=== PATIENT | male | born 1965 | race Caucasian/White ===

== ENCOUNTER 2017-12-10 21:15 | Emergency (ER) | payer OTHER ==
[~2017-12-10] VITALS: Ht 182.9 cm; Wt 104.3 kg
[~2017-12-10 21:15] MED LIST: AUGMENTIN 875875 MG PO; CEFTIN 250 MG250 MG PO; CIPRO500 M1 PO; CIPROFLOXACIN500 M3 PO; COUMADIN 2.5MG2.5 M1 PO; COUMADIN 5 MG TA5 M1 PO; DILAUDID 2 MG TA2 MG PO; ENOXAPARIN100 MG/11 SUBQ; ENOXAPARIN150 MG/11 SUBQ; FIBERCON625 M1 PO; FLOMAX0.4 MG PO; HYDROCODONE-AP1 EAC6 PO; NEURONTIN 400400 M1 PO; NEURONTIN600 MG PO; NORCO 5-325 TA1 EACH PO; PERCOCET 5-3251 EACH PO; PERCOCET 7.5-31 EACH PO; PERCOCET PO; SINGULAIR 10 MG10 M1 PO; TRAMADOL 50 MG50 MG; TRAMADOL 50 MG50 MG PO; XARELTO15 MG PO; ZOFRAN ODT4 MG SUBLING
[2017-12-10 21:52] LABS: ABSOLUTE EOSINOPHILS 0.3 thou/uL (0.0-0.7); ABSOLUTE LYMPHOCYTES 1.9 thou/uL (0.8-5.3); ABSOLUTE MONOCYTES 0.7 thou/uL (0.0-1.2); ABSOLUTE NEUTROPHILS 4.9 thou/uL (1.6-8.1); BASOPHILS 0.4 %; EOSINOPHILS 3.6 %; HEMATOCRIT 41.7 % (42.0-52.0); HEMOGLOBIN 14.1 gm/dL (14.0-18.0); LYMPHOCYTES 23.9 %; MCH 30.1 pg (26.0-34.0); MCHC 33.8 g/dL (28.0-37.0); MONOCYTES 9.4 %; MPV 6.6 fl. (7.2-11.1); NUCLEATED RBCS 0 /100WBC; PLATELET COUNT* 233 thou/uL (150-400); POLYS 62.7 %; RBC 4.69 mil/uL (4.50-6.00); RDW-CV 14.1 % (10.5-14.5); WBC 7.9 thou/uL (4.0-11.0)
[2017-12-10 22:05] LABS: APTT 45.7 Seconds (25.0-31.3); INR 2.5
[2017-12-10] MEDS ORDERED: KEFLEX500 M1 PO (22:14)
[2017-12-10] MEDS ORDERED: BACTRIM DS TAB1 EACH PO (22:14)
[2017-12-10 22:17] LABS: ALBUMIN 3.4 g/dL (3.4-5.0); CALCIUM 8.7 mg/dL (8.5-10.1); CREATININE 1.2 mg/dL (0.6-1.3); POTASSIUM 3.7 mmol/L (3.5-5.1); TOTAL BILIRUBIN 0.4 mg/dL (<0.1-1.0); TOTAL PROTEIN 7.7 g/dL (6.4-8.2)
[2017-12-10 22:32] VITALS: BP 141/77
== END 2017-12-10 23:05 | disposition home or self-care (01) ==
LOC: M.ERS 21:15
PROVIDERS: Family Medicine
DX: L03.115 Cellulitis of right lower limb (principal); Z87.442 Personal history of urinary calculi; Z86.718 Personal history of other venous thrombosis and embolism; Z86.711 Personal history of pulmonary embolism

== ENCOUNTER 2018-06-11 04:32 | Emergency (ER) | payer OTHER ==
[~2018-06-11] VITALS: Ht 182.9 cm; Wt 102.7 kg
[~2018-06-11 04:32] MED LIST changes: +BACTRIM DS TAB1 EACH PO; +KEFLEX500 M1 PO
[2018-06-11 04:57] LABS: ABSOLUTE EOSINOPHILS 0.3 thou/uL (0.0-0.7); ABSOLUTE LYMPHOCYTES 1.8 thou/uL (0.8-5.3); ABSOLUTE MONOCYTES 0.5 thou/uL (0.0-1.2); ABSOLUTE NEUTROPHILS 4.9 thou/uL (1.6-8.1); BASOPHILS 0.5 %; HEMATOCRIT 46.2 % (42.0-52.0); HEMOGLOBIN 15.3 gm/dL (14.0-18.0); LYMPHOCYTES 24.3 %; MCH 30.4 pg (26.0-34.0); MCHC 33.2 g/dL (28.0-37.0); MCV 91.6 fL (80.0-100.0); MONOCYTES 6.3 %; NUCLEATED RBCS 0 /100WBC; PLATELET COUNT* 247 thou/uL (150-400); POLYS 64.9 %; RBC 5.05 mil/uL (4.50-6.00); RDW-CV 13.9 % (10.5-14.5); WBC 7.6 thou/uL (4.0-11.0)
[2018-06-11 05:01] LABS: URINE BLOOD 3+ (Negative); URINE CLARITY CLOUDY; URINE COLOR BROWN; URINE GLUCOSE-RANDOM NEGATIVE (Negative); URINE KETONES NEGATIVE (Negative); URINE LEUKOCYTES-REFLEX NEGATIVE (Negative); URINE NITRITE-REFLEX NEGATIVE (Negative); URINE PROTEIN 2+ (Negative); URINE SPECIFIC GRAVITY >= 1.030 (1.005-1.030); URINE UROBILINOGEN 0.2 E.U./dl (0.2-1.0)
[2018-06-11 05:04] LABS: ICTOTEST (BILI CONFIRMATORY) Negative (Negative); URINE BILIRUBIN 1+ (Negative)
[2018-06-11 05:18] LABS: INR 2.4; PROTIME 22.7 Seconds (9.20-11.50)
[2018-06-11 05:22] LABS: CALCIUM 8.6 mg/dL (8.5-10.1); CREATININE 1.3 mg/dL (0.6-1.3); POTASSIUM 3.6 mmol/L (3.5-5.1)
[2018-06-11 05:25] LABS: TOTAL BILIRUBIN 0.7 mg/dL (<0.1-1.0); TOTAL PROTEIN 8.1 g/dL (6.4-8.2)
[2018-06-11 05:39] LABS: CASTS None Seen /LPF (None Seen); SQUAMOUS NONE SEEN /LPF (0-3); URINE WBC-REFLEX 0-5 Rare /HPF (0-5)
[2018-06-11 05:40] LABS: BACTERIA-REFLEX 1-9 Few /HPF (None Seen); CRYSTALS None Seen /LPF (None Seen); URINE RBC >20 Many /HPF (0-2)
[2018-06-11] MEDS ORDERED: FLOMAX0.4 MG PO (06:22)
[2018-06-11] MEDS ORDERED: HYDROCODONE-AP1 EAC6 PO (06:22)
[2018-06-11] MEDS ORDERED: ZOFRAN ODT4 MG PO (06:22)
[2018-06-11 06:43] VITALS: BP 118/78
== END 2018-06-11 06:43 | disposition home or self-care (01) ==
LOC: M.ERS 04:32
PROVIDERS: Emergency Medicine Emergency Medical Services
DX: N20.0 Calculus of kidney (principal)

== ENCOUNTER 2019-06-11 12:22 | Inpatient (IN) | payer OTHER | END 2019-06-14 12:45 | disposition home or self-care (01) | DRG 603 | LOC: M.ERS 12:22 → M.TBA-ER 13:18 → M.ORTHSURG 14:20 | PROVIDERS: ADMIT Internal Medicine | DX: L03.115 Cellulitis of right lower limb (principal); L02.611 Cutaneous abscess of right foot; I87.2 Venous insufficiency (chronic) (peripheral); J40 Bronchitis, not specified as acute or chronic; Z79.899 Other long term (current) drug therapy; Z86.718 Personal history of other venous thrombosis and embolism; Z86.711 Personal history of pulmonary embolism; Z89.431 Acquired absence of right foot; Z87.442 Personal history of urinary calculi ==

== ENCOUNTER 2020-04-24 22:35 | Emergency (ER) | payer OTHER ==
[~2020-04-24] VITALS: Ht 182.9 cm; Wt 103.0 kg
[~2020-04-24 22:35] MED LIST changes: +DYNACIN100 MG PO; +VENTOLIN HFA 1818 GM INH; +ZOFRAN ODT4 MG PO
[2020-04-24] MEDS ORDERED: NEURONTIN 400M400 M2 PO (22:49)
[2020-04-24] MEDS ORDERED: CLEOCIN HCL300 MG PO (22:50)
[2020-04-24] MEDS ORDERED: METAXALL800 MG PO (22:50)
[2020-04-24] MEDS ORDERED: COUMADIN 5 MG TA5 M1 PO (22:51)
[2020-04-24] MEDS ORDERED: MEDROL4 M1 PO (22:52)
[2020-04-24 23:14] LABS: ABSOLUTE BASOPHILS 0.1 thou/uL (0.0-0.2); ABSOLUTE LYMPHOCYTES 1.5 thou/uL (0.8-5.3); ABSOLUTE MONOCYTES 0.5 thou/uL (0.0-1.2); ABSOLUTE NEUTROPHILS 5.9 thou/uL (1.6-8.1); BASOPHILS 0.7 %; EOSINOPHILS 0.5 %; HEMATOCRIT 43.5 % (42.0-52.0); LYMPHOCYTES 18.3 %; MCH 30.7 pg (26.0-34.0); MCHC 34.5 g/dL (28.0-37.0); MCV 89.1 fL (80.0-100.0); MONOCYTES 5.9 %; MPV 6.9 fl. (7.2-11.1); NUCLEATED RBCS 0 /100WBC; PLATELET COUNT* 247 thou/uL (150-400); POLYS 74.6 %; RBC 4.88 mil/uL (4.50-6.00); RDW-CV 14.2 % (10.5-14.5)
[2020-04-24 23:21] LABS: CALCIUM 8.4 mg/dL (8.5-10.1); CREATININE 1.3 mg/dL (0.6-1.3)
[2020-04-24 23:22] LABS: INR 4.3; PROTIME 41.9 Seconds (9.20-11.50)
[2020-04-24 23:26] LABS: ALBUMIN 3.9 g/dL (3.4-5.0); TOTAL BILIRUBIN 0.5 mg/dL (<0.1-1.0); TOTAL PROTEIN 8.1 g/dL (6.4-8.2)
[2020-04-24 23:52] LABS: URINE BILIRUBIN NEGATIVE (Negative); URINE BLOOD 3+ (Negative); URINE CLARITY CLOUDY; URINE COLOR RED; URINE GLUCOSE-RANDOM NEGATIVE (Negative); URINE KETONES NEGATIVE (Negative); URINE LEUKOCYTES-REFLEX NEGATIVE (Negative); URINE NITRITE-REFLEX NEGATIVE (Negative); URINE PROTEIN 1+ (Negative); URINE SPECIFIC GRAVITY 1.025 (1.005-1.030); URINE UROBILINOGEN 0.2 E.U./dl (0.2-1.0)
[2020-04-25] MEDS ORDERED: ZOFRAN ODT4 MG DISSOLVE (00:10)
[2020-04-25] MEDS ORDERED: NORCO 5-325 TA1 EAC1 PO (00:10)
[2020-04-25] MEDS ORDERED: FLOMAX0.4 MG PO (00:10)
[2020-04-25 00:20] VITALS: BP 144/93
[2020-04-25 00:40] LABS: BACTERIA-REFLEX None Seen /HPF (None Seen); CASTS None Seen /LPF (None Seen); CRYSTALS None Seen /LPF (None Seen); SQUAMOUS NONE SEEN /LPF (0-3); URINE RBC >20 Many /HPF (0-2); URINE WBC-REFLEX 0-5 Rare /HPF (0-5)
== END 2020-04-25 00:21 | disposition home or self-care (01) ==
LOC: M.ERS 22:35
PROVIDERS: Emergency Medicine Emergency Medical Services
DX: N20.0 Calculus of kidney (principal); R31.9 Hematuria, unspecified; Z87.442 Personal history of urinary calculi; Z86.711 Personal history of pulmonary embolism; Z86.718 Personal history of other venous thrombosis and embolism

== ENCOUNTER 2020-04-26 13:02 | Emergency (ER) | payer OTHER ==
[~2020-04-26] VITALS: Ht 182.9 cm; Wt 103.0 kg
[~2020-04-26 13:02] MED LIST changes: +CLEOCIN HCL300 MG PO; +MEDROL4 M1 PO; +METAXALL800 MG PO; +NEURONTIN 400M400 M2 PO; +NORCO 5-325 TA1 EAC1 PO; +ZOFRAN ODT4 MG DISSOLVE
[2020-04-26 14:04] LABS: HEMATOCRIT 47.4 % (42.0-52.0); MCH 30.4 pg (26.0-34.0); MCHC 33.7 g/dL (28.0-37.0); MCV 90.1 fL (80.0-100.0); MPV 6.7 fl. (7.2-11.1); NUCLEATED RBCS 0 /100WBC; PLATELET COUNT* 248 thou/uL (150-400); RBC 5.27 mil/uL (4.50-6.00); WBC 11.7 thou/uL (4.0-11.0)
[2020-04-26 14:14] LABS: APTT 39.4 Seconds (25.0-31.3); CALCIUM 9.1 mg/dL (8.5-10.1); CREATININE 1.5 mg/dL (0.6-1.3); POTASSIUM 3.3 mmol/L (3.5-5.1); PROTIME 22.8 Seconds (9.20-11.50)
[2020-04-26 14:16] LABS: INR 2.3
[2020-04-26 14:19] LABS: ALBUMIN 4.4 g/dL (3.4-5.0); TOTAL PROTEIN 9.1 g/dL (6.4-8.2)
[2020-04-26 14:33] LABS: ABSOLUTE LYMPHOCYTES 1.1 thou/uL (0.8-5.3); ABSOLUTE MONOCYTES 0.8 thou/uL (0.0-1.2); ABSOLUTE NEUTROPHILS 9.8 thou/uL (1.6-8.1); PLATELET ESTIMATE ADEQUATE
[2020-04-26 16:16] LABS: URINE BILIRUBIN NEGATIVE (Negative); URINE BLOOD 3+ (Negative); URINE CLARITY CLOUDY; URINE COLOR BROWN; URINE GLUCOSE-RANDOM NEGATIVE (Negative); URINE KETONES NEGATIVE (Negative); URINE LEUKOCYTES-REFLEX NEGATIVE (Negative); URINE NITRITE-REFLEX NEGATIVE (Negative); URINE PROTEIN 1+ (Negative); URINE UROBILINOGEN 0.2 E.U./dl (0.2-1.0)
[2020-04-26 16:30] LABS: SQUAMOUS 0-3 Few /LPF (0-3)
[2020-04-26 16:35] LABS: URINE RBC >20 Many /HPF (0-2); URINE WBC-REFLEX 0-5 Rare /HPF (0-5)
[2020-04-26 16:36] LABS: BACTERIA-REFLEX 1-9 Few /HPF (None Seen); CASTS None Seen /LPF (None Seen); CRYSTALS None Seen /LPF (None Seen); MUCUS None Seen strn/LPF (None Seen)
[2020-04-26 18:50] VITALS: BP 135/70
== END 2020-04-26 18:50 | disposition short-term general hospital (02) ==
LOC: M.ERS 13:02
PROVIDERS: Nurse Practitioner Family
DX: N20.1 Calculus of ureter (principal); N17.9 Acute kidney failure, unspecified; R11.2 Nausea with vomiting, unspecified; Z87.442 Personal history of urinary calculi; Z86.718 Personal history of other venous thrombosis and embolism; Z86.711 Personal history of pulmonary embolism; Z89.431 Acquired absence of right foot

== ENCOUNTER 2021-07-26 15:02 | Inpatient (IN) | payer OTHER ==
[~2021-07-26] VITALS: Ht 182.9 cm; Wt 101.2 kg
[~2021-07-26 15:02] MED LIST changes: +JANTOVEN2.5 MG PO
[2021-07-26 15:10] VITALS: BP 146/89
[2021-07-26 16:13] LABS: ABSOLUTE EOSINOPHILS 0.3 thou/uL (0.0-0.7); ABSOLUTE LYMPHOCYTES 1.2 thou/uL (0.8-5.3); ABSOLUTE MONOCYTES 0.8 thou/uL (0.0-1.2); ABSOLUTE NEUTROPHILS 3.5 thou/uL (1.6-8.1); BASOPHILS 0.6 %; EOSINOPHILS 5.7 %; MCH 29.5 pg (26.0-34.0); MCHC 32.6 g/dL (28.0-37.0); MCV 90.5 fL (80.0-100.0); MONOCYTES 13.7 %; MPV 6.2 fl. (7.2-11.1); NUCLEATED RBCS 0 /100WBC; PLATELET COUNT* 213 thou/uL (150-400); RBC 4.74 mil/uL (4.50-6.00); RDW-CV 14.5 % (10.5-14.5); WBC 5.9 thou/uL (4.0-11.0)
[2021-07-26 16:22] LABS: CREATININE 1.5 mg/dL (0.6-1.3); POTASSIUM 4.3 mmol/L (3.5-5.1)
[2021-07-26 16:26] LABS: ALBUMIN 3.6 g/dL (3.4-5.0); TOTAL BILIRUBIN 0.6 mg/dL (<0.1-1.0)
[2021-07-26 19:58] LABS: PROTIME 48.6 Seconds (9.20-11.50)
[2021-07-26 20:09] LABS: INR 5.1
[2021-07-26 22:30] VITALS: BP 145/65
[2021-07-26 22:49] VITALS: BP 146/89
[2021-07-27 05:28] LABS: HEMATOCRIT 40.4 % (42.0-52.0); HEMOGLOBIN 13.6 gm/dL (14.0-18.0); MCH 30.4 pg (26.0-34.0); MCHC 33.5 g/dL (28.0-37.0); MCV 90.6 fL (80.0-100.0); MPV 6.8 fl. (7.2-11.1); RBC 4.46 mil/uL (4.50-6.00); RDW-CV 14.4 % (10.5-14.5); WBC 4.9 thou/uL (4.0-11.0)
[2021-07-27 05:31] LABS: PROTIME 51.9 Seconds (9.20-11.50)
[2021-07-27 05:36] LABS: ALBUMIN 3.1 g/dL (3.4-5.0); CALCIUM 7.6 mg/dL (8.5-10.1); CREATININE 1.4 mg/dL (0.6-1.3); MAGNESIUM 1.9 mg/dL (1.8-2.4); POTASSIUM 4.2 mmol/L (3.5-5.1); TOTAL BILIRUBIN 0.6 mg/dL (<0.1-1.0); TOTAL PROTEIN 6.5 g/dL (6.4-8.2)
[2021-07-27 06:00] LABS: INR 5.4
--- NOTE | 2021-07-27 06:30 | NUR ---
ADMIT NOTE:RECIEVED PT VIA BED FROM ED, PT RESTING IN BED REQUESTING TO WALK TO BATHROOM, GAIT STEADY, C/O PAIN AT BILATERAL LOWER WOUNDS SITES,IV FLUIDS STARTED, DISCUSSED PLAN OF CARE, OBTAINED PICTURES OF LOWER BILATERAL WOUNDS, AND CALLED ADN RECIEVED PAIN MEDICATIONS ORDERS. WILL CONITNUE WITH CURRENT PLAN OF CARE AND WILL REPORT CHANGES.
[2021-07-27 07:40] VITALS: BP 116/79
--- NOTE | 2021-07-27 10:00 | NUR ---
WOUND NURSE: PATIENT SEEN TO ADDRESS VLU'S PRESENT ON BLE AND WITH CELLULITIS. WOUND MEASUREMENTS FOLLOWS: RLE: LATERAL: 3.0 X 2.9 X 0.1 CM; MEDIAL 2.4 X 1.5 X 0.1 CM; POSTERIOR: 1.5 X 1.5 X 0.1 CM INTACT SEROUS FILLED BULLA. LLE: POSTERIOR 2.5 X 2.0 X 0.1 CM, INTACT SEROUS FILLED BULLA; MEDIAL: 0.2 X 0.7 X 0.1 CM. ALL LESIONS SHALLOW AND CONTAIN THIN DRY RED SCABS, NO ACTIVE DRAINAGE. RLE IS REDDENED AND WARM TO TOUCH. CAPILLARY REFILL IN BLE 3 TO 4 SECONDS. PALPABLE DP PULSES BILATERALLY. NONPALP PT'S. PATIENT WITH RLE RASH PRESENTING WITH SILVERY PLAQUES AND PATIENT STATES HE HAS HAD THIS PROBLEM FOR MORE THAN A YEAR. PATIENT STATES HE ORIGINALLY SAW DR. VALDEZ YEARS AGO, BUT WANTS TO SEE PHYSICIAN FROM [facility] SO HE CAN BE FOLLOWED THERE IN THE FUTURE. PATIENT SCHEDULED TO SEE DR. ROOT LATER TODAY, THEN SCHEDULED TO SEE DR. ARBOLEDA IN THE CLINIC ONCE DISCHARGED FROM ACUTE CARE. PATIENT ALSO REPORTS HE SAW [facility] AND THEY WANT TO TREAT VENOUS INSUFFICIENCY LATER IN THE [place] AND WEAR COMPRESSION IN THE MEAN TIME. PT STATES THEY ALSO ADDRESSED ARTERIES AND HE DOESN'T THINK THERE WAS A PROBLEM WITH THEM. PT DOES NOT HAVE A SMOKING HISTORY. PATIENT INSTRUCTED ON MEASURES TO PROMOTE HEALING AND PREVENT COMPLICAIONS. STATES HE UNDERSTANDS. PATIENT WRAPPED WITH DSD USING KERLEX ROLL GAUZE UNTIL HE'S SEEN BY DR ROOT LATER TODAY.
--- NOTE | 2021-07-27 14:43 | NUR ---
Pt is A&O. Resides at home alone, in October 2020, dtr supportive and involved in POC. Pt is independent. No DME. No hx of HH or SNF. Wound nurse and podiatry consulted. Goal is home at dc. Following for dc needs.
[2021-07-27 16:00] VITALS: BP 121/82
--- NOTE | 2021-07-27 16:02 | NUR ---
PT REMAINED ALERT AND ORIENTED. PT RESTING IN BED, PAIN MEDS GIVEN ORDERED. PODIATRY DEBRIDED RT FOOT. FALL RISK PRECAUTIONS IN PLACE, HOURLY ROUNDING COMPLETED. CALL LIGHT WITHIN REACH.
--- NOTE | 2021-07-27 16:28 | NUR ---
WOUND NURSE: WOUND DEBRIDEMENT PERFORMED BY DR. DK DPM. POST DEBRIDEMENT PHOTO OBTAINED. CONSENT FORM COMPLETED AND DEBRIDEMENT FORM ALSO COMPLETED. ORDERS OBRAINED FOR WOUND CARE AND INITIATED. PATIENT BEING TREATED FOR FUNGAL RASH ON RIGHT CALF ALSO. POST DEBRIDEMENT MEASUREMENTS WERE 3.0 X 2.5 X 0.1 CM. RED NONGRANULATING TISSUE PRESENT UNDERNEATH EXUDATE THAT WAS REMOVED.
[2021-07-27 19:32] VITALS: BP 121/73; BP 121/733
[2021-07-28] VITALS: BP 126/86
[2021-07-28 04:00] VITALS: BP 130/81
--- NOTE | 2021-07-28 04:42 | NUR ---
PATIENT HAS REMAINED ALERT AND ORIENTED X 4 THROUGHOUT THE SHIFT AND RESTING QUIETLY ON HOURLY ROUNDS BUT STATES DOES NOT SLEEP MUCH. SNACK IN THE MIDDLE OF THE NIGHT AT REQUEST. DRESSING RLE CLEAN AND DRY. ANTIBIOTICS PER ORDER. VITAL SIGNS STABLE. CONTINUE TO MONITOR.
[2021-07-28 05:22] LABS: HEMATOCRIT 45.2 % (42.0-52.0); HEMOGLOBIN 15.3 gm/dL (14.0-18.0); MCH 30.6 pg (26.0-34.0); MCHC 33.9 g/dL (28.0-37.0); MCV 90.2 fL (80.0-100.0); MPV 6.2 fl. (7.2-11.1); RBC 5.01 mil/uL (4.50-6.00); RDW-CV 14.1 % (10.5-14.5); WBC 5.5 thou/uL (4.0-11.0)
[2021-07-28 05:34] LABS: INR 2.8
[2021-07-28 05:37] LABS: ALBUMIN 3.6 g/dL (3.4-5.0); CALCIUM 8.6 mg/dL (8.5-10.1); CREATININE 1.3 mg/dL (0.6-1.3); MAGNESIUM 2.1 mg/dL (1.8-2.4)
[2021-07-28 05:57] LABS: TOTAL BILIRUBIN 0.7 mg/dL (<0.1-1.0); TOTAL PROTEIN 7.5 g/dL (6.4-8.2)
[2021-07-28 07:35] VITALS: BP 136/94
[2021-07-28 11:25] VITALS: BP 116/80
--- NOTE | 2021-07-28 11:53 | NUR ---
Anticipate dc in tomorrow. Pt had debridement at bedside yesterday, will f/u with wound care center post dc. No plan for ivabx.
[2021-07-28 16:00] VITALS: BP 127/82
--- NOTE | 2021-07-28 16:32 | NUR ---
PT REMAINED ALERT AND ORIENTED. FALL RISK PRECAUTIONS IN PLACE. HOURLY ROUNDING COMPLETED. CALL LIGHT WITHIN REACH.
[2021-07-28 20:10] VITALS: BP 122/86
[2021-07-29 03:01] VITALS: BP 137/86
--- NOTE | 2021-07-29 06:28 | NUR ---
pt is stable, denies pain. continue iv abt. up to bathroom, remains free from injury.
[2021-07-29 07:12] LABS: INR 1.9; PROTIME 19.8 Seconds (9.20-11.50)
[2021-07-29] MEDS ORDERED: NYSTATIN15 G3 TOP (08:42)
[2021-07-29] MEDS ORDERED: BACTRIM DS TAB1 EAC1 PO (08:46)
[2021-07-29] MEDS ORDERED: AMOXIL 875 MG875 M2 PO (08:46)
[2021-07-29 12:38] VITALS: BP 130/79
[2021-07-29 13:45] VITALS: BP 130/79
[2021-07-29 13:47] VITALS: BP 130/79
[2021-07-29 13:57] VITALS: BP 130/79
--- NOTE | 2021-07-29 15:17 | NUR ---
Pt assisted to exit by hospital staff. States understanding of discharge instructions and plans to follow up with wound care and PCP. Ambulatory on discharge. Wound dressing changed and documented prior to departure.
[2021-07-30] MEDS ORDERED: PROMETHAZI6.25 MG/5 PO (16:53)
[2021-07-30] MEDS ORDERED: TESSALON PERLE100 MG PO (16:53)
== END 2021-07-29 15:20 | disposition home or self-care (01) | DRG 571 ==
LOC: M.ERS 15:02 → M.TBA-ER 16:42 → M.2W 16:42
PROVIDERS: Physician Assistant; ADMIT Internal Medicine; ATTEND Internal Medicine
PROC: 0JBN0ZZ Excision of Right Lower Leg Subcutaneous Tissue and Fascia, Open Approach (ICD-10-PCS; principal; 2021-07-27)
DX: L03.115 Cellulitis of right lower limb (principal); L97.819 Non-pressure chronic ulcer of other part of right lower leg with unspecified severity; Z60.2 Problems related to living alone; B35.3 Tinea pedis; N18.30 Chronic kidney disease, stage 3 unspecified; Z20.822 Contact with and (suspected) exposure to COVID-19; Z89.431 Acquired absence of right foot; Z87.442 Personal history of urinary calculi; Z86.718 Personal history of other venous thrombosis and embolism; Z86.711 Personal history of pulmonary embolism; Z79.899 Other long term (current) drug therapy

== ENCOUNTER 2021-07-30 16:19 | Emergency (ER) | payer OTHER ==
[~2021-07-30] VITALS: Ht 180.3 cm; Wt 104.3 kg
[~2021-07-30 16:19] MED LIST changes: +AMOXIL 875 MG875 M2 PO; +BACTRIM DS TAB1 EAC1 PO; +NYSTATIN15 G3 TOP
[2021-07-30] MEDS ORDERED: PROMETHAZI6.25 MG/5 PO (16:53)
[2021-07-30] MEDS ORDERED: TESSALON PERLE100 MG PO (16:53)
[2021-07-30 17:02] VITALS: BP 122/72
== END 2021-07-30 17:04 | disposition home or self-care (01) ==
LOC: M.ERS 16:19
DX: J06.9 Acute upper respiratory infection, unspecified (principal); Z20.822 Contact with and (suspected) exposure to COVID-19; S91.001A Unspecified open wound, right ankle, initial encounter; Z86.718 Personal history of other venous thrombosis and embolism; Z79.899 Other long term (current) drug therapy; X58.XXXA Exposure to other specified factors, initial encounter; Y93.89 Activity, other specified; Y92.89 Other specified places as the place of occurrence of the external cause; Y99.8 Other external cause status

== ENCOUNTER → 2021-08-05 | Outpatient (CLI) | payer OTHER ==
[~2021-08-05] MED LIST changes: +PROMETHAZI6.25 MG/5 PO; +TESSALON PERLE100 MG PO
== END ==
LOC: M.WC 08:00
PROVIDERS: ATTEND Family Medicine
DX: I87.331 Chronic venous hypertension (idiopathic) with ulcer and inflammation of right lower extremity (principal); L97.812 Non-pressure chronic ulcer of other part of right lower leg with fat layer exposed; G62.9 Polyneuropathy, unspecified; Z89.431 Acquired absence of right foot; Z86.718 Personal history of other venous thrombosis and embolism; Z79.01 Long term (current) use of anticoagulants

== ENCOUNTER → 2021-08-09 | Outpatient (CLI) | payer OTHER | LOC: M.WC 12:13 | PROVIDERS: ATTEND Podiatrist Foot & Ankle Surgery | DX: I83.013 Varicose veins of right lower extremity with ulcer of ankle (principal); L97.312 Non-pressure chronic ulcer of right ankle with fat layer exposed; L84 Corns and callosities; G62.9 Polyneuropathy, unspecified; Z89.431 Acquired absence of right foot; Z86.718 Personal history of other venous thrombosis and embolism; Z79.01 Long term (current) use of anticoagulants ==

== ENCOUNTER → 2021-08-16 | Outpatient (CLI) | payer OTHER | LOC: M.WC 12:29 | PROVIDERS: ATTEND Podiatrist Foot & Ankle Surgery | DX: I83.013 Varicose veins of right lower extremity with ulcer of ankle (principal); L97.312 Non-pressure chronic ulcer of right ankle with fat layer exposed; L84 Corns and callosities; G62.9 Polyneuropathy, unspecified; Z89.431 Acquired absence of right foot; Z86.718 Personal history of other venous thrombosis and embolism; Z79.01 Long term (current) use of anticoagulants ==

== ENCOUNTER → 2021-08-23 | Outpatient (CLI) | payer OTHER | LOC: M.WC 11:54 | PROVIDERS: ATTEND Podiatrist Foot & Ankle Surgery | DX: I83.013 Varicose veins of right lower extremity with ulcer of ankle (principal); L97.312 Non-pressure chronic ulcer of right ankle with fat layer exposed; L84 Corns and callosities; G62.9 Polyneuropathy, unspecified; Z89.431 Acquired absence of right foot; Z86.718 Personal history of other venous thrombosis and embolism; Z79.01 Long term (current) use of anticoagulants ==

== ENCOUNTER → 2021-08-30 | Outpatient (CLI) | payer OTHER | LOC: M.WC 12:22 | PROVIDERS: ATTEND Podiatrist Foot & Ankle Surgery | DX: I83.013 Varicose veins of right lower extremity with ulcer of ankle (principal); L97.312 Non-pressure chronic ulcer of right ankle with fat layer exposed; L84 Corns and callosities; L13.9 Bullous disorder, unspecified; G62.9 Polyneuropathy, unspecified; Z89.431 Acquired absence of right foot; Z86.718 Personal history of other venous thrombosis and embolism; Z79.01 Long term (current) use of anticoagulants ==

== ENCOUNTER → 2021-09-06 | Outpatient (CLI) | payer OTHER | LOC: M.WC 14:00 | PROVIDERS: ATTEND Podiatrist Foot & Ankle Surgery | DX: I83.013 Varicose veins of right lower extremity with ulcer of ankle (principal); L97.312 Non-pressure chronic ulcer of right ankle with fat layer exposed; L84 Corns and callosities; L13.9 Bullous disorder, unspecified; G62.9 Polyneuropathy, unspecified; Z89.431 Acquired absence of right foot; Z86.718 Personal history of other venous thrombosis and embolism; Z79.01 Long term (current) use of anticoagulants ==

== ENCOUNTER 2021-11-06 12:41 | Inpatient (IN) | payer OTHER ==
[~2021-11-06] VITALS: Ht 182.9 cm; Wt 102.5 kg
[2021-11-06 12:46] VITALS: BP 147/90
[2021-11-06 13:21] LABS: INFLUENZA A ANTIGEN Negative (Negative); INFLUENZA B ANTIGEN Negative (Negative)
[2021-11-06 15:47] LABS: ABSOLUTE LYMPHOCYTES 0.8 thou/uL (0.8-5.3); ABSOLUTE MONOCYTES 0.6 thou/uL (0.0-1.2); ABSOLUTE NEUTROPHILS 4.1 thou/uL (1.6-8.1); BASOPHILS 0.2 %; HEMATOCRIT 45.7 % (42.0-52.0); HEMOGLOBIN 15.6 gm/dL (14.0-18.0); LYMPHOCYTES 14.3 %; MCH 30.2 pg (26.0-34.0); MCHC 34.2 g/dL (28.0-37.0); MCV 88.5 fL (80.0-100.0); MPV 6.7 fl. (7.2-11.1); NUCLEATED RBCS 0 /100WBC; PLATELET COUNT* 148 thou/uL (150-400); POLYS 74.5 %; RBC 5.16 mil/uL (4.50-6.00); RDW-CV 14.3 % (10.5-14.5); WBC 5.6 thou/uL (4.0-11.0)
[2021-11-06 15:55] LABS: CALCIUM 8.1 mg/dL (8.5-10.1); CREATININE 1.8 mg/dL (0.6-1.3); POTASSIUM 3.9 mmol/L (3.5-5.1)
[2021-11-06 16:07] LABS: ALBUMIN 3.5 g/dL (3.4-5.0); TOTAL BILIRUBIN 0.7 mg/dL (<0.1-1.0)
[2021-11-06 20:30] VITALS: BP 110/80
[2021-11-07 00:30] VITALS: BP 115/78
[2021-11-07 04:30] VITALS: BP 116/77
[2021-11-07 08:33] VITALS: BP 133/86
[2021-11-07 11:07] LABS: ABSOLUTE LYMPHOCYTES 0.8 thou/uL (0.8-5.3); ABSOLUTE MONOCYTES 0.5 thou/uL (0.0-1.2); ABSOLUTE NEUTROPHILS 4.7 thou/uL (1.6-8.1); BASOPHILS 0.2 %; HEMATOCRIT 45.9 % (42.0-52.0); HEMOGLOBIN 15.6 gm/dL (14.0-18.0); LYMPHOCYTES 12.6 %; MCH 30.2 pg (26.0-34.0); MCHC 33.9 g/dL (28.0-37.0); MONOCYTES 8.4 %; MPV 6.8 fl. (7.2-11.1); NUCLEATED RBCS 0 /100WBC; PLATELET COUNT* 147 thou/uL (150-400); POLYS 78.8 %; RBC 5.16 mil/uL (4.50-6.00); RDW-CV 14.2 % (10.5-14.5)
[2021-11-07 11:19] LABS: APTT 37.2 Seconds (25.0-31.3); INR 1.4
[2021-11-07 11:20] LABS: ALBUMIN 3.2 g/dL (3.4-5.0); CALCIUM 8.4 mg/dL (8.5-10.1); CREATININE 1.5 mg/dL (0.6-1.3); MAGNESIUM 2.4 mg/dL (1.8-2.4); PHOSPHORUS* 3.2 mg/dL (2.5-4.9); POTASSIUM 4.1 mmol/L (3.5-5.1); TOTAL BILIRUBIN 0.7 mg/dL (<0.1-1.0); TOTAL PROTEIN 7.8 g/dL (6.4-8.2)
[2021-11-07 12:11] LABS: ESR (SEDRATE) 50 mm/hr (0-20)
[2021-11-07 12:24] VITALS: BP 122/70
[2021-11-07 17:14] VITALS: BP 152/80
[2021-11-07 22:44] VITALS: BP 129/89
[2021-11-08 01:00] VITALS: BP 127/77
[2021-11-08 04:00] VITALS: BP 125/84
[2021-11-08 08:51] LABS: HEMATOCRIT 43.7 % (42.0-52.0); HEMOGLOBIN 14.5 gm/dL (14.0-18.0); MCH 29.9 pg (26.0-34.0); MCHC 33.2 g/dL (28.0-37.0); MCV 90.2 fL (80.0-100.0); MPV 6.7 fl. (7.2-11.1); NUCLEATED RBCS 0 /100WBC; PLATELET COUNT* 164 thou/uL (150-400); RBC 4.84 mil/uL (4.50-6.00); RDW-CV 14.3 % (10.5-14.5); WBC 5.4 thou/uL (4.0-11.0)
[2021-11-08 08:55] LABS: CREATININE 1.5 mg/dL (0.6-1.3); POTASSIUM 4.2 mmol/L (3.5-5.1)
[2021-11-08 10:50] LABS: ABSOLUTE LYMPHOCYTES 0.3 thou/uL (0.8-5.3); ABSOLUTE MONOCYTES 0.3 thou/uL (0.0-1.2); ABSOLUTE NEUTROPHILS 4.8 thou/uL (1.6-8.1)
[2021-11-08 10:51] LABS: PLATELET ESTIMATE ADEQUATE
[2021-11-08 16:00] VITALS: BP 123/72
[2021-11-08 16:40] VITALS: BP 123/75
[2021-11-08 17:40] VITALS: BP 128/84; BP 138/62
[2021-11-08 20:00] VITALS: BP 127/80
[2021-11-09] VITALS: BP 122/71
[2021-11-09 04:00] VITALS: BP 155/86
[2021-11-09 04:23] LABS: HEMATOCRIT 43.7 % (42.0-52.0); HEMOGLOBIN 14.5 gm/dL (14.0-18.0); MCH 29.7 pg (26.0-34.0); MCHC 33.1 g/dL (28.0-37.0); MCV 89.6 fL (80.0-100.0); MPV 6.9 fl. (7.2-11.1); RBC 4.88 mil/uL (4.50-6.00); RDW-CV 14.6 % (10.5-14.5); WBC 11.2 thou/uL (4.0-11.0)
[2021-11-09 05:09] LABS: CALCIUM 8.4 mg/dL (8.5-10.1); CREATININE 1.3 mg/dL (0.6-1.3)
[2021-11-09 08:00] VITALS: BP 148/80
[2021-11-09 16:00] VITALS: BP 132/72
[2021-11-10 00:29] VITALS: BP 128/80
[2021-11-10 04:00] VITALS: BP 133/60
[2021-11-10 09:30] VITALS: BP 130/72
[2021-11-10 13:09] VITALS: BP 132/80
[2021-11-10 16:00] VITALS: BP 125/78
[2021-11-10 20:30] VITALS: BP 140/87
[2021-11-11] VITALS: BP 101/29
[2021-11-11 03:46] LABS: HEMATOCRIT 39.6 % (42.0-52.0); HEMOGLOBIN 13.3 gm/dL (14.0-18.0); MCH 29.9 pg (26.0-34.0); MCHC 33.6 g/dL (28.0-37.0); MCV 88.9 fL (80.0-100.0); MPV 6.6 fl. (7.2-11.1); RBC 4.45 mil/uL (4.50-6.00); RDW-CV 14.6 % (10.5-14.5); WBC 10.1 thou/uL (4.0-11.0)
[2021-11-11 04:00] VITALS: BP 133/86
[2021-11-11 04:09] LABS: CALCIUM 8.4 mg/dL (8.5-10.1); CREATININE 1.2 mg/dL (0.6-1.3)
[2021-11-11 09:15] VITALS: BP 150/88
[2021-11-11 10:01] LABS: BE -0.5 mmol/L (-2 to +3); pH 7.421 (7.340-7.450)
[2021-11-11 10:08] LABS: PO2 56.9 mmHg (75.0-100.0)
[2021-11-11 13:40] VITALS: BP 144/93
[2021-11-11 16:00] VITALS: BP 128/79
[2021-11-11 20:00] VITALS: BP 127/87
[2021-11-12 00:53] VITALS: BP 150/92
[2021-11-12 04:49] VITALS: BP 137/79
[2021-11-12 07:58] VITALS: BP 136/90
[2021-11-12 11:43] LABS: BE -1.4 mmol/L (-2 to +3); PCO2 36.2 mmHg (35.0-45.0); PO2 65.2 mmHg (75.0-100.0); pH 7.415 (7.340-7.450)
[2021-11-12 13:12] VITALS: BP 140/90
[2021-11-12 16:00] VITALS: BP 132/85
[2021-11-12 21:10] VITALS: BP 139/87
[2021-11-13] VITALS: BP 140/89
[2021-11-13 04:01] VITALS: BP 140/96
[2021-11-13 06:33] LABS: ABSOLUTE LYMPHOCYTES 0.5 thou/uL (0.8-5.3); ABSOLUTE MONOCYTES 0.5 thou/uL (0.0-1.2); ABSOLUTE NEUTROPHILS 8.7 thou/uL (1.6-8.1); BASOPHILS 0.2 %; HEMATOCRIT 40.5 % (42.0-52.0); HEMOGLOBIN 13.3 gm/dL (14.0-18.0); LYMPHOCYTES 4.8 %; MCH 29.6 pg (26.0-34.0); MCHC 32.9 g/dL (28.0-37.0); MCV 90.2 fL (80.0-100.0); MONOCYTES 5.1 %; MPV 6.7 fl. (7.2-11.1); NUCLEATED RBCS 0 /100WBC; PLATELET COUNT* 299 thou/uL (150-400); POLYS 89.9 %; RBC 4.49 mil/uL (4.50-6.00); RDW-CV 14.6 % (10.5-14.5); WBC 9.6 thou/uL (4.0-11.0)
[2021-11-13 06:43] LABS: PROTIME 68.1 Seconds (9.20-11.50)
[2021-11-13 06:45] LABS: INR 7.1
[2021-11-13 06:50] LABS: ALBUMIN 2.6 g/dL (3.4-5.0); CALCIUM 8.8 mg/dL (8.5-10.1); CREATININE 1.2 mg/dL (0.6-1.3); MAGNESIUM 2.4 mg/dL (1.8-2.4); POTASSIUM 4.4 mmol/L (3.5-5.1); TOTAL PROTEIN 6.9 g/dL (6.4-8.2)
[2021-11-13 08:00] VITALS: BP 136/87
[2021-11-13 12:00] VITALS: BP 144/85
[2021-11-13 12:30] VITALS: BP 128/83
[2021-11-13 20:00] VITALS: BP 143/81
[2021-11-14] VITALS (7 sets, daily range): BP systolic 122–142; BP diastolic 81–95
[2021-11-14 06:50] LABS: HEMOGLOBIN 13.7 gm/dL (14.0-18.0); MCH 29.5 pg (26.0-34.0); MCHC 33.4 g/dL (28.0-37.0); MCV 88.2 fL (80.0-100.0); MPV 7.1 fl. (7.2-11.1); RBC 4.66 mil/uL (4.50-6.00); RDW-CV 14.3 % (10.5-14.5); WBC 11.1 thou/uL (4.0-11.0)
[2021-11-14 07:03] LABS: CALCIUM 8.8 mg/dL (8.5-10.1); CREATININE 1.4 mg/dL (0.6-1.3); POTASSIUM 4.4 mmol/L (3.5-5.1)
[2021-11-14 15:02] LABS: PROTIME 39.1 Seconds (9.20-11.50)
[2021-11-15 02:00] LABS: HEMATOCRIT 43.1 % (42.0-52.0); HEMOGLOBIN 14.1 gm/dL (14.0-18.0); MCH 29.4 pg (26.0-34.0); MCHC 32.8 g/dL (28.0-37.0); MCV 89.9 fL (80.0-100.0); RBC 4.8 mil/uL (4.50-6.00); RDW-CV 14.4 % (10.5-14.5); WBC 11.4 thou/uL (4.0-11.0)
[2021-11-15 02:07] VITALS: BP 12/829
[2021-11-15 02:07] LABS: INR 4.1; PROTIME 39.8 Seconds (9.20-11.50)
[2021-11-15 02:10] LABS: ALBUMIN 2.9 g/dL (3.4-5.0); CALCIUM 8.7 mg/dL (8.5-10.1); CREATININE 1.4 mg/dL (0.6-1.3); MAGNESIUM 2.3 mg/dL (1.8-2.4); POTASSIUM 4.6 mmol/L (3.5-5.1); TOTAL BILIRUBIN 1.3 mg/dL (<0.1-1.0); TOTAL PROTEIN 7.1 g/dL (6.4-8.2)
[2021-11-15 06:17] VITALS: BP 140/90
[2021-11-15 08:00] VITALS: BP 123/82
[2021-11-15 12:07] VITALS: BP 123/76
[2021-11-15 16:34] VITALS: BP 113/75
[2021-11-15 19:45] VITALS: BP 123/80
[2021-11-16] VITALS (7 sets, daily range): BP systolic 105–133; BP diastolic 72–84
[2021-11-16 05:46] LABS: HEMATOCRIT 43.1 % (42.0-52.0); HEMOGLOBIN 14.3 gm/dL (14.0-18.0); MCH 29.8 pg (26.0-34.0); MCHC 33.3 g/dL (28.0-37.0); MCV 89.5 fL (80.0-100.0); MPV 7.1 fl. (7.2-11.1); NUCLEATED RBCS 0 /100WBC; PLATELET COUNT* 247 thou/uL (150-400); RBC 4.81 mil/uL (4.50-6.00); RDW-CV 14.2 % (10.5-14.5); WBC 10.2 thou/uL (4.0-11.0)
[2021-11-16 06:32] LABS: PROTIME 48.6 Seconds (9.20-11.50)
[2021-11-16 06:51] LABS: ABSOLUTE MONOCYTES 0.3 thou/uL (0.0-1.2); ABSOLUTE NEUTROPHILS 9.9 thou/uL (1.6-8.1); PLATELET ESTIMATE ADEQUATE
[2021-11-16 07:15] LABS: ALBUMIN 2.9 g/dL (3.4-5.0); CALCIUM 8.5 mg/dL (8.5-10.1); CREATININE 1.4 mg/dL (0.6-1.3); MAGNESIUM 2.2 mg/dL (1.8-2.4); POTASSIUM 4.7 mmol/L (3.5-5.1); TOTAL BILIRUBIN 1.3 mg/dL (<0.1-1.0); TOTAL PROTEIN 6.8 g/dL (6.4-8.2)
[2021-11-17 03:51] VITALS: BP 140/67
[2021-11-17 05:23] LABS: INR 3.6; PROTIME 34.9 Seconds (9.20-11.50)
[2021-11-17 05:43] LABS: ALBUMIN 3.6 g/dL (3.4-5.0); CALCIUM 8.8 mg/dL (8.5-10.1); CREATININE 1.6 mg/dL (0.6-1.3); MAGNESIUM 2.4 mg/dL (1.8-2.4); POTASSIUM 4.3 mmol/L (3.5-5.1); TOTAL BILIRUBIN 1.4 mg/dL (<0.1-1.0); TOTAL PROTEIN 7.5 g/dL (6.4-8.2)
[2021-11-17 06:32] LABS: HEMATOCRIT 44.9 % (42.0-52.0); HEMOGLOBIN 14.9 gm/dL (14.0-18.0); MCH 29.2 pg (26.0-34.0); MCHC 33.2 g/dL (28.0-37.0); MCV 87.9 fL (80.0-100.0); MPV 7.6 fl. (7.2-11.1); RBC 5.1 mil/uL (4.50-6.00); WBC 13.3 thou/uL (4.0-11.0)
[2021-11-17 13:03] VITALS: BP 121/84
[2021-11-17 16:00] VITALS: BP 129/87
[2021-11-18 00:10] VITALS: BP 117/86
[2021-11-18 04:04] VITALS: BP 104/72
[2021-11-18 04:31] LABS: HEMATOCRIT 39.1 % (42.0-52.0); HEMOGLOBIN 13.1 gm/dL (14.0-18.0); MCH 29.7 pg (26.0-34.0); MCHC 33.6 g/dL (28.0-37.0); MCV 88.5 fL (80.0-100.0); MPV 7.4 fl. (7.2-11.1); RBC 4.42 mil/uL (4.50-6.00); RDW-CV 13.9 % (10.5-14.5); WBC 14.7 thou/uL (4.0-11.0)
[2021-11-18 04:45] LABS: INR 3.3; PROTIME 32.3 Seconds (9.20-11.50)
[2021-11-18 05:13] LABS: ALBUMIN 2.9 g/dL (3.4-5.0); CALCIUM 8.4 mg/dL (8.5-10.1); CREATININE 1.3 mg/dL (0.6-1.3); MAGNESIUM 2.3 mg/dL (1.8-2.4); POTASSIUM 4.6 mmol/L (3.5-5.1); TOTAL BILIRUBIN 0.8 mg/dL (<0.1-1.0); TOTAL PROTEIN 6.1 g/dL (6.4-8.2)
[2021-11-18 08:45] VITALS: BP 112/70
[2021-11-18 12:00] VITALS: BP 119/75
[2021-11-18 13:14] LABS: URINE BILIRUBIN NEGATIVE (Negative); URINE BLOOD NEGATIVE (Negative); URINE CLARITY CLEAR; URINE COLOR YELLOW; URINE GLUCOSE-RANDOM NEGATIVE (Negative); URINE KETONES NEGATIVE (Negative); URINE LEUKOCYTES-REFLEX NEGATIVE (Negative); URINE NITRITE-REFLEX NEGATIVE (Negative); URINE PROTEIN TRACE (Negative); URINE SPECIFIC GRAVITY 1.025 (1.005-1.030); URINE UROBILINOGEN 0.2 E.U./dl (0.2-1.0)
[2021-11-18 16:00] VITALS: BP 114/69
[2021-11-18 20:00] VITALS: BP 136/74
[2021-11-19] VITALS: BP 120/75
[2021-11-19 04:00] VITALS: BP 121/80
[2021-11-19 04:51] LABS: MPV 7.4 fl. (7.2-11.1); RBC 4.49 mil/uL (4.50-6.00)
[2021-11-19 04:53] LABS: HEMATOCRIT 39.6 % (42.0-52.0); HEMOGLOBIN 13.4 gm/dL (14.0-18.0); MCH 29.8 pg (26.0-34.0); MCHC 33.8 g/dL (28.0-37.0); MCV 88.2 fL (80.0-100.0); RDW-CV 13.9 % (10.5-14.5); WBC 20.9 thou/uL (4.0-11.0)
[2021-11-19 05:07] LABS: CALCIUM 8.3 mg/dL (8.5-10.1); CREATININE 1.3 mg/dL (0.6-1.3); MAGNESIUM 2.1 mg/dL (1.8-2.4); TOTAL PROTEIN 6.3 g/dL (6.4-8.2)
[2021-11-19 07:39] VITALS: BP 118/78
[2021-11-19 12:00] VITALS: BP 109/69
[2021-11-19 14:25] LABS: INR 4.2; PROTIME 40.7 Seconds (9.20-11.50)
[2021-11-19 16:00] VITALS: BP 128/71
[2021-11-19 20:00] VITALS: BP 133/76
[2021-11-20] VITALS: BP 114/75
[2021-11-20 04:00] VITALS: BP 116/80
[2021-11-20 08:00] VITALS: BP 119/74
[2021-11-20 11:30] VITALS: BP 114/71
[2021-11-20 11:51] LABS: INR 4.4; PROTIME 43.2 Seconds (9.20-11.50)
[2021-11-20 11:53] LABS: CALCIUM 8.6 mg/dL (8.5-10.1); CREATININE 1.1 mg/dL (0.6-1.3); MAGNESIUM 2.3 mg/dL (1.8-2.4); POTASSIUM 4.2 mmol/L (3.5-5.1)
[2021-11-20 18:58] VITALS: BP 131/75
[2021-11-20 20:00] VITALS: BP 114/67
[2021-11-21] VITALS (7 sets, daily range): BP systolic 110–139; BP diastolic 68–80
[2021-11-21 12:48] LABS: HEMATOCRIT 40.7 % (42.0-52.0); HEMOGLOBIN 13.4 gm/dL (14.0-18.0); MCH 29.1 pg (26.0-34.0); MCV 88.1 fL (80.0-100.0); MPV 7.5 fl. (7.2-11.1); RBC 4.62 mil/uL (4.50-6.00)
[2021-11-21 12:56] LABS: INR 3.1; PROTIME 30.3 Seconds (9.20-11.50)
[2021-11-22 01:28] VITALS: BP 135/80
[2021-11-22 03:43] VITALS: BP 130/78
[2021-11-22 05:58] LABS: HEMATOCRIT 38.4 % (42.0-52.0); HEMOGLOBIN 12.9 gm/dL (14.0-18.0); MCH 29.4 pg (26.0-34.0); MCHC 33.5 g/dL (28.0-37.0); MPV 7.7 fl. (7.2-11.1); NUCLEATED RBCS 0 /100WBC; PLATELET COUNT* 109 thou/uL (150-400); RBC 4.37 mil/uL (4.50-6.00); RDW-CV 14.2 % (10.5-14.5); WBC 18.2 thou/uL (4.0-11.0)
[2021-11-22 06:16] LABS: INR 2.3; PROTIME 22.8 Seconds (9.20-11.50)
[2021-11-22 06:41] LABS: CALCIUM 8.1 mg/dL (8.5-10.1); CREATININE 1.2 mg/dL (0.6-1.3); POTASSIUM 4.5 mmol/L (3.5-5.1); TOTAL BILIRUBIN 0.9 mg/dL (<0.1-1.0); TOTAL PROTEIN 5.9 g/dL (6.4-8.2)
[2021-11-22 06:49] LABS: ABSOLUTE LYMPHOCYTES 0.7 thou/uL (0.8-5.3); ABSOLUTE MONOCYTES 0.4 thou/uL (0.0-1.2); ABSOLUTE NEUTROPHILS 17.1 thou/uL (1.6-8.1)
[2021-11-22 06:50] LABS: PLATELET ESTIMATE ADEQUATE
[2021-11-22 08:00] VITALS: BP 114/71
[2021-11-22 12:20] VITALS: BP 118/74
[2021-11-22 17:10] VITALS: BP 121/77
[2021-11-22 20:00] VITALS: BP 130/78
[2021-11-23] VITALS: BP 122/76
[2021-11-23 04:00] VITALS: BP 128/83
[2021-11-23 05:46] LABS: ABSOLUTE LYMPHOCYTES 0.6 thou/uL (0.8-5.3); ABSOLUTE MONOCYTES 0.4 thou/uL (0.0-1.2); EOSINOPHILS 0.2 %; HEMATOCRIT 38.3 % (42.0-52.0); HEMOGLOBIN 12.6 gm/dL (14.0-18.0); LYMPHOCYTES 3.6 %; MCH 29.4 pg (26.0-34.0); MCHC 32.9 g/dL (28.0-37.0); MCV 89.3 fL (80.0-100.0); MONOCYTES 2.3 %; MPV 7.9 fl. (7.2-11.1); NUCLEATED RBCS 0 /100WBC; PLATELET COUNT* 97 thou/uL (150-400); POLYS 93.9 %; RBC 4.29 mil/uL (4.50-6.00); RDW-CV 14.3 % (10.5-14.5)
[2021-11-23 06:00] LABS: ALBUMIN 2.9 g/dL (3.4-5.0); CALCIUM 8.5 mg/dL (8.5-10.1); CREATININE 1.1 mg/dL (0.6-1.3); POTASSIUM 4.6 mmol/L (3.5-5.1); TOTAL BILIRUBIN 0.7 mg/dL (<0.1-1.0); TOTAL PROTEIN 5.7 g/dL (6.4-8.2)
[2021-11-23 07:45] VITALS: BP 119/83
[2021-11-23 12:00] VITALS: BP 121/77
[2021-11-23 16:00] VITALS: BP 126/78
[2021-11-23 20:00] VITALS: BP 151/86
[2021-11-23 20:35] LABS: INR 2.4
[2021-11-23 20:36] LABS: PROTIME 25.6 Seconds (9.20-11.50)
[2021-11-24] VITALS: BP 128/71
[2021-11-24 04:00] VITALS: BP 119/82
[2021-11-24 06:00] LABS: INR 1.2; PROTIME 12.2 Seconds (9.20-11.50)
[2021-11-24 08:00] VITALS: BP 136/84
[2021-11-24 08:07] LABS: ABSOLUTE EOSINOPHILS 0.1 thou/uL (0.0-0.7); ABSOLUTE LYMPHOCYTES 0.9 thou/uL (0.8-5.3); ABSOLUTE NEUTROPHILS 5.5 thou/uL (1.6-8.1); BASOPHILS 0.5 %; EOSINOPHILS 0.9 %; HEMATOCRIT 32.6 % (42.0-52.0); MCH 27.3 pg (26.0-34.0); MCHC 32.6 g/dL (28.0-37.0); MONOCYTES 12.9 %; MPV 8.6 fl. (7.2-11.1); NUCLEATED RBCS 0 /100WBC; POLYS 73.7 %; RDW-CV 16.1 % (10.5-14.5); WBC 7.4 thou/uL (4.0-11.0)
[2021-11-24 08:11] LABS: HEMOGLOBIN 10.6 gm/dL (14.0-18.0); MCV 83.5 fL (80.0-100.0); PLATELET COUNT* 187 thou/uL (150-400)
[2021-11-24 08:21] LABS: ALBUMIN 2.3 g/dL (3.4-5.0); CALCIUM 7.5 mg/dL (8.5-10.1); POTASSIUM 4.9 mmol/L (3.5-5.1); TOTAL BILIRUBIN 0.5 mg/dL (<0.1-1.0); TOTAL PROTEIN 5.7 g/dL (6.4-8.2)
[2021-11-24 12:00] VITALS: BP 125/79
[2021-11-24 15:48] VITALS: BP 128/79
[2021-11-24 20:00] VITALS: BP 133/86
[2021-11-25] VITALS: BP 121/85
[2021-11-25 04:00] VITALS: BP 123/7
[2021-11-25 06:33] LABS: ABSOLUTE LYMPHOCYTES 0.9 thou/uL (0.8-5.3); ABSOLUTE MONOCYTES 0.3 thou/uL (0.0-1.2); ABSOLUTE NEUTROPHILS 15.8 thou/uL (1.6-8.1); BASOPHILS 0.2 %; EOSINOPHILS 0.1 %; HEMATOCRIT 41.3 % (42.0-52.0); MCH 29.6 pg (26.0-34.0); MCHC 32.7 g/dL (28.0-37.0); MPV 7.8 fl. (7.2-11.1); NUCLEATED RBCS 0 /100WBC; POLYS 92.7 %; RBC 4.57 mil/uL (4.50-6.00); RDW-CV 14.8 % (10.5-14.5)
[2021-11-25 06:36] LABS: HEMOGLOBIN 13.5 gm/dL (14.0-18.0); MCV 90.4 fL (80.0-100.0)
[2021-11-25 06:42] LABS: PLATELET COUNT* 101 thou/uL (150-400)
[2021-11-25 07:04] LABS: ALBUMIN 3.1 g/dL (3.4-5.0); CALCIUM 8.1 mg/dL (8.5-10.1); POTASSIUM 4.1 mmol/L (3.5-5.1); TOTAL BILIRUBIN 0.8 mg/dL (<0.1-1.0); TOTAL PROTEIN 6.3 g/dL (6.4-8.2)
[2021-11-25 08:00] VITALS: BP 117/76
[2021-11-25 11:00] VITALS: BP 120/81
[2021-11-25 12:58] LABS: INR 2.4; PROTIME 25.7 Seconds (9.20-11.50)
[2021-11-25 15:24] VITALS: BP 124/68
[2021-11-26 04:00] VITALS: BP 146/84
[2021-11-26 04:25] LABS: HEMATOCRIT 39.3 % (42.0-52.0); MCH 29.7 pg (26.0-34.0); MCV 89.9 fL (80.0-100.0); MPV 7.4 fl. (7.2-11.1); NUCLEATED RBCS 0 /100WBC; RBC 4.37 mil/uL (4.50-6.00); RDW-CV 14.5 % (10.5-14.5); WBC 18.3 thou/uL (4.0-11.0)
[2021-11-26 05:59] LABS: ABSOLUTE LYMPHOCYTES 0.7 thou/uL (0.8-5.3)
[2021-11-26 06:00] LABS: PLATELET COUNT* 96 thou/uL (150-400)
[2021-11-26 06:01] LABS: ABSOLUTE MONOCYTES 0.5 thou/uL (0.0-1.2); PLATELET ESTIMATE ADEQUATE
[2021-11-26 06:41] LABS: ALBUMIN 2.9 g/dL (3.4-5.0); CALCIUM 8.1 mg/dL (8.5-10.1); CREATININE 1.1 mg/dL (0.6-1.3); POTASSIUM 4.5 mmol/L (3.5-5.1); TOTAL BILIRUBIN 0.9 mg/dL (<0.1-1.0); TOTAL PROTEIN 5.8 g/dL (6.4-8.2)
[2021-11-26 08:00] VITALS: BP 122/75
[2021-11-26 18:23] VITALS: BP 140/74
[2021-11-26 20:00] VITALS: BP 136/80
[2021-11-27] VITALS: BP 131/79
[2021-11-27 04:00] VITALS: BP 129/82
[2021-11-27 05:44] LABS: ABSOLUTE MONOCYTES 0.6 thou/uL (0.0-1.2); ABSOLUTE NEUTROPHILS 13.9 thou/uL (1.6-8.1); BASOPHILS 0.2 %; EOSINOPHILS 0.2 %; HEMATOCRIT 36.2 % (42.0-52.0); HEMOGLOBIN 12.2 gm/dL (14.0-18.0); LYMPHOCYTES 6.5 %; MCH 30.2 pg (26.0-34.0); MCHC 33.6 g/dL (28.0-37.0); MCV 89.9 fL (80.0-100.0); MONOCYTES 3.6 %; MPV 7.5 fl. (7.2-11.1); NUCLEATED RBCS 0 /100WBC; PLATELET COUNT* 86 thou/uL (150-400); POLYS 89.5 %; RBC 4.03 mil/uL (4.50-6.00); RDW-CV 14.6 % (10.5-14.5); WBC 15.5 thou/uL (4.0-11.0)
[2021-11-27 05:59] LABS: PROTIME 36.1 Seconds (9.20-11.50)
[2021-11-27 06:10] LABS: ALBUMIN 2.7 g/dL (3.4-5.0); CREATININE 1.1 mg/dL (0.6-1.3); POTASSIUM 4.3 mmol/L (3.5-5.1); TOTAL BILIRUBIN 0.8 mg/dL (<0.1-1.0); TOTAL PROTEIN 5.5 g/dL (6.4-8.2)
[2021-11-27 06:27] LABS: INR 3.7
[2021-11-27 07:35] VITALS: BP 112/79
[2021-11-27 12:00] VITALS: BP 122/76
[2021-11-27 16:00] VITALS: BP 124/68
[2021-11-27 20:44] VITALS: BP 122/56
[2021-11-28] VITALS: BP 123/74
[2021-11-28 04:00] VITALS: BP 119/73
[2021-11-28 06:34] LABS: ABSOLUTE LYMPHOCYTES 0.4 thou/uL (0.8-5.3); ABSOLUTE MONOCYTES 0.4 thou/uL (0.0-1.2); ABSOLUTE NEUTROPHILS 13.7 thou/uL (1.6-8.1); EOSINOPHILS 0.2 %; HEMATOCRIT 35.6 % (42.0-52.0); HEMOGLOBIN 11.8 gm/dL (14.0-18.0); LYMPHOCYTES 2.8 %; MCH 30.2 pg (26.0-34.0); MCHC 33.2 g/dL (28.0-37.0); MCV 90.9 fL (80.0-100.0); MONOCYTES 2.6 %; MPV 7.3 fl. (7.2-11.1); NUCLEATED RBCS 0 /100WBC; PLATELET COUNT* 90 thou/uL (150-400); POLYS 94.4 %; RBC 3.92 mil/uL (4.50-6.00); RDW-CV 14.8 % (10.5-14.5); WBC 14.6 thou/uL (4.0-11.0)
[2021-11-28 06:49] LABS: PROTIME 29.7 Seconds (9.20-11.50)
[2021-11-28 07:17] LABS: ALBUMIN 2.7 g/dL (3.4-5.0); CALCIUM 7.7 mg/dL (8.5-10.1); CREATININE 1.1 mg/dL (0.6-1.3); POTASSIUM 4.5 mmol/L (3.5-5.1); TOTAL BILIRUBIN 0.7 mg/dL (<0.1-1.0); TOTAL PROTEIN 5.4 g/dL (6.4-8.2)
[2021-11-28 12:34] VITALS: BP 134/75
[2021-11-28 15:59] VITALS: BP 124/64
[2021-11-28 20:54] VITALS: BP 113/68
[2021-11-29 00:20] VITALS: BP 117/73
[2021-11-29 04:00] VITALS: BP 136/68
[2021-11-29 06:33] LABS: ABSOLUTE LYMPHOCYTES 0.5 thou/uL (0.8-5.3); ABSOLUTE MONOCYTES 0.3 thou/uL (0.0-1.2); ABSOLUTE NEUTROPHILS 14.3 thou/uL (1.6-8.1); BASOPHILS 0.1 %; EOSINOPHILS 0.1 %; HEMATOCRIT 37.4 % (42.0-52.0); HEMOGLOBIN 12.2 gm/dL (14.0-18.0); LYMPHOCYTES 3.6 %; MCH 29.7 pg (26.0-34.0); MCHC 32.7 g/dL (28.0-37.0); MCV 90.8 fL (80.0-100.0); MONOCYTES 2.2 %; MPV 7.2 fl. (7.2-11.1); NUCLEATED RBCS 0 /100WBC; PLATELET COUNT* 102 thou/uL (150-400); RBC 4.12 mil/uL (4.50-6.00); WBC 15.2 thou/uL (4.0-11.0)
[2021-11-29 06:51] LABS: INR 1.9; PROTIME 19.5 Seconds (9.20-11.50)
[2021-11-29 08:00] VITALS: BP 133/81
[2021-11-29 08:02] LABS: ALBUMIN 2.8 g/dL (3.4-5.0); CALCIUM 7.9 mg/dL (8.5-10.1); CREATININE 1.1 mg/dL (0.6-1.3); POTASSIUM 4.6 mmol/L (3.5-5.1); TOTAL BILIRUBIN 0.7 mg/dL (<0.1-1.0); TOTAL PROTEIN 5.7 g/dL (6.4-8.2)
[2021-11-29 11:36] VITALS: BP 133/77
[2021-11-29 15:49] VITALS: BP 123/84
[2021-11-29 20:15] VITALS: BP 109/69
[2021-11-30 00:59] VITALS: BP 116/71
[2021-11-30 06:11] VITALS: BP 113/80
[2021-11-30 06:22] LABS: HEMATOCRIT 37.5 % (42.0-52.0); HEMOGLOBIN 12.2 gm/dL (14.0-18.0); MCH 29.9 pg (26.0-34.0); MCHC 32.6 g/dL (28.0-37.0); MCV 91.7 fL (80.0-100.0); MPV 7.2 fl. (7.2-11.1); NUCLEATED RBCS 0 /100WBC; PLATELET COUNT* 111 thou/uL (150-400); RBC 4.09 mil/uL (4.50-6.00); RDW-CV 15.4 % (10.5-14.5); WBC 15.8 thou/uL (4.0-11.0)
[2021-11-30 06:34] LABS: INR 1.8; PROTIME 18.5 Seconds (9.20-11.50)
[2021-11-30 06:55] LABS: ALBUMIN 2.7 g/dL (3.4-5.0); CALCIUM 7.8 mg/dL (8.5-10.1); POTASSIUM 4.5 mmol/L (3.5-5.1); TOTAL BILIRUBIN 0.9 mg/dL (<0.1-1.0); TOTAL PROTEIN 5.6 g/dL (6.4-8.2)
[2021-11-30 07:16] LABS: ABSOLUTE LYMPHOCYTES 0.6 thou/uL (0.8-5.3); ABSOLUTE NEUTROPHILS 14.7 thou/uL (1.6-8.1)
[2021-11-30 07:17] LABS: ABSOLUTE MONOCYTES 0.5 thou/uL (0.0-1.2); PLATELET ESTIMATE ADEQUATE
[2021-11-30 08:00] VITALS: BP 133/88
[2021-11-30] MEDS ORDERED: ALBUTEROL2.5 MG/31 INH (12:55)
[2021-11-30] MEDS ORDERED: DEXAMETHASONE1 MG PO (12:55)
[2021-11-30] MEDS ORDERED: PROTONIX40 M2 PO (12:55)
[2021-11-30 13:01] VITALS: BP 120/74
[2021-11-30 17:36] VITALS: BP 122/73
[2021-12-01 02:23] VITALS: BP 114/75
[2021-12-01 05:06] LABS: ABSOLUTE EOSINOPHILS 0.1 thou/uL (0.0-0.7); ABSOLUTE LYMPHOCYTES 1.1 thou/uL (0.8-5.3); ABSOLUTE MONOCYTES 0.6 thou/uL (0.0-1.2); ABSOLUTE NEUTROPHILS 10.6 thou/uL (1.6-8.1); BASOPHILS 0.1 %; EOSINOPHILS 0.7 %; HEMATOCRIT 37.4 % (42.0-52.0); HEMOGLOBIN 12.6 gm/dL (14.0-18.0); LYMPHOCYTES 9.2 %; MCH 30.4 pg (26.0-34.0); MCHC 33.6 g/dL (28.0-37.0); MCV 90.3 fL (80.0-100.0); MPV 7.2 fl. (7.2-11.1); NUCLEATED RBCS 0 /100WBC; PLATELET COUNT* 122 thou/uL (150-400); RBC 4.14 mil/uL (4.50-6.00); RDW-CV 15.5 % (10.5-14.5); WBC 12.5 thou/uL (4.0-11.0)
[2021-12-01 05:08] LABS: INR 2.2; PROTIME 22.2 Seconds (9.20-11.50)
[2021-12-01 05:30] LABS: ALBUMIN 3.2 g/dL (3.4-5.0); TOTAL BILIRUBIN 0.8 mg/dL (<0.1-1.0); TOTAL PROTEIN 6.1 g/dL (6.4-8.2)
[2021-12-01 06:36] VITALS: BP 162/72
[2021-12-01 08:00] VITALS: BP 140/80
[2021-12-01 11:50] VITALS: BP 118/66
== END 2021-12-01 16:31 | DRG 177 ==
LOC: M.ERS 12:41 → M.ORTHSURG 16:27 → M.TBA-ER 16:27 → M.ORTHSURG 11-08 00:50 → M.2W 11-21 21:57
PROVIDERS: Internal Medicine; Internal Medicine Critical Care Medicine; Pediatrics; Physician Assistant; ADMIT Internal Medicine; ATTEND Internal Medicine
PROC: XW033H5 Introduction of Tocilizumab into Peripheral Vein, Percutaneous Approach, New Technology Group 5 (ICD-10-PCS; principal; 2021-11-08)
PROC: 5A0935A Assistance with Respiratory Ventilation, Less than 24 Consecutive Hours, High Flow/Velocity Cannula (ICD-10-PCS; principal; 2021-11-08)
PROC: XW033E5 Introduction of Remdesivir Anti-infective into Peripheral Vein, Percutaneous Approach, New Technology Group 5 (ICD-10-PCS; principal; 2021-11-08)
PROC: XW13325 Transfusion of Convalescent Plasma (Nonautologous) into Peripheral Vein, Percutaneous Approach, New Technology Group 5 (ICD-10-PCS; principal; 2021-11-08)
PROC: 02H633Z Insertion of Infusion Device into Right Atrium, Percutaneous Approach (ICD-10-PCS; 2021-11-09)
PROC: 5A0935A Assistance with Respiratory Ventilation, Less than 24 Consecutive Hours, High Flow/Velocity Cannula (ICD-10-PCS; 2021-11-10)
PROC: 5A0945A Assistance with Respiratory Ventilation, 24-96 Consecutive Hours, High Flow/Velocity Cannula (ICD-10-PCS; 2021-11-11)
PROC: 5A09357 Assistance with Respiratory Ventilation, Less than 24 Consecutive Hours, Continuous Positive Airway Pressure (ICD-10-PCS; 2021-11-13)
PROC: 5A09357 Assistance with Respiratory Ventilation, Less than 24 Consecutive Hours, Continuous Positive Airway Pressure (ICD-10-PCS; 2021-11-14)
PROC: 5A0935A Assistance with Respiratory Ventilation, Less than 24 Consecutive Hours, High Flow/Velocity Cannula (ICD-10-PCS; 2021-11-14)
PROC: 5A09357 Assistance with Respiratory Ventilation, Less than 24 Consecutive Hours, Continuous Positive Airway Pressure (ICD-10-PCS; 2021-11-16)
PROC: 5A0935A Assistance with Respiratory Ventilation, Less than 24 Consecutive Hours, High Flow/Velocity Cannula (ICD-10-PCS; 2021-11-16)
PROC: 5A09357 Assistance with Respiratory Ventilation, Less than 24 Consecutive Hours, Continuous Positive Airway Pressure (ICD-10-PCS; 2021-11-17)
PROC: 5A0935A Assistance with Respiratory Ventilation, Less than 24 Consecutive Hours, High Flow/Velocity Cannula (ICD-10-PCS; 2021-11-17)
PROC: 5A09357 Assistance with Respiratory Ventilation, Less than 24 Consecutive Hours, Continuous Positive Airway Pressure (ICD-10-PCS; 2021-11-18)
PROC: 5A0935A Assistance with Respiratory Ventilation, Less than 24 Consecutive Hours, High Flow/Velocity Cannula (ICD-10-PCS; 2021-11-18)
PROC: 5A09357 Assistance with Respiratory Ventilation, Less than 24 Consecutive Hours, Continuous Positive Airway Pressure (ICD-10-PCS; 2021-11-19)
PROC: 5A0935A Assistance with Respiratory Ventilation, Less than 24 Consecutive Hours, High Flow/Velocity Cannula (ICD-10-PCS; 2021-11-19)
PROC: 5A0935A Assistance with Respiratory Ventilation, Less than 24 Consecutive Hours, High Flow/Velocity Cannula (ICD-10-PCS; 2021-11-20)
PROC: 5A09357 Assistance with Respiratory Ventilation, Less than 24 Consecutive Hours, Continuous Positive Airway Pressure (ICD-10-PCS; 2021-11-20)
PROC: 5A0935A Assistance with Respiratory Ventilation, Less than 24 Consecutive Hours, High Flow/Velocity Cannula (ICD-10-PCS; 2021-11-21)
PROC: 5A09357 Assistance with Respiratory Ventilation, Less than 24 Consecutive Hours, Continuous Positive Airway Pressure (ICD-10-PCS; 2021-11-21)
PROC: 5A0935A Assistance with Respiratory Ventilation, Less than 24 Consecutive Hours, High Flow/Velocity Cannula (ICD-10-PCS; 2021-11-23)
PROC: 5A0935A Assistance with Respiratory Ventilation, Less than 24 Consecutive Hours, High Flow/Velocity Cannula (ICD-10-PCS; 2021-11-24)
PROC: 5A0935A Assistance with Respiratory Ventilation, Less than 24 Consecutive Hours, High Flow/Velocity Cannula (ICD-10-PCS; 2021-11-26)
PROC: 5A0935A Assistance with Respiratory Ventilation, Less than 24 Consecutive Hours, High Flow/Velocity Cannula (ICD-10-PCS; 2021-11-27)
PROC: 5A0935A Assistance with Respiratory Ventilation, Less than 24 Consecutive Hours, High Flow/Velocity Cannula (ICD-10-PCS; 2021-11-29)
PROC: 5A0935A Assistance with Respiratory Ventilation, Less than 24 Consecutive Hours, High Flow/Velocity Cannula (ICD-10-PCS; 2021-11-30)
PROC: 5A0935A Assistance with Respiratory Ventilation, Less than 24 Consecutive Hours, High Flow/Velocity Cannula (ICD-10-PCS; 2021-12-01)
DX: U07.1 COVID-19 (principal); N17.0 Acute kidney failure with tubular necrosis; J12.82 Pneumonia due to coronavirus disease 2019; J80 Acute respiratory distress syndrome; D72.829 Elevated white blood cell count, unspecified; B37.9 Candidiasis, unspecified; K12.1 Other forms of stomatitis; I87.2 Venous insufficiency (chronic) (peripheral); R31.9 Hematuria, unspecified; I73.9 Peripheral vascular disease, unspecified; E66.9 Obesity, unspecified; R04.0 Epistaxis; D69.6 Thrombocytopenia, unspecified; F41.9 Anxiety disorder, unspecified; Z89.431 Acquired absence of right foot; Z79.01 Long term (current) use of anticoagulants; Z87.442 Personal history of urinary calculi; Z86.718 Personal history of other venous thrombosis and embolism; Z86.711 Personal history of pulmonary embolism; Z68.30 Body mass index [BMI] 30.0-30.9, adult; Z95.828 Presence of other vascular implants and grafts

== ENCOUNTER → 2021-12-29 | Outpatient (CLI) | payer OTHER ==
[~2021-12-29] MED LIST changes: +ALBUTEROL2.5 MG/31 INH; +DEXAMETHASONE1 MG PO; +PROTONIX40 M2 PO
== END ==
LOC: M.RAD 10:21
PROVIDERS: ATTEND Family Medicine
DX: U07.1 COVID-19 (principal); J12.82 Pneumonia due to coronavirus disease 2019

== ENCOUNTER → 2022-01-17 | Outpatient (CLI) | payer OTHER | LOC: M.ULTRA 01-14 11:30 | PROVIDERS: ATTEND Family Medicine | DX: N20.0 Calculus of kidney (principal) ==